=== PATIENT | female | born 1950 | race Hispanic/Latino ===

== ENCOUNTER → 2018-05-28 | Outpatient (CLI) | payer OTHER ==
[~2018-05-28] MED LIST: CALC-877 PO; CYCL30DR OP; FEXO1TAB8 PO; HAIR AND NAIL; HYDR200T82 PO; LOSA50TA25 PO; SIMV10TA6 PO
== END | disposition home or self-care (01) ==
LOC: RAH 11:15
PROVIDERS: ATTEND Internal Medicine
DX: M81.0 Age-related osteoporosis without current pathological fracture (principal); M15.0 Primary generalized (osteo)arthritis; M06.4 Inflammatory polyarthropathy
CPT/HCPCS: 73130; 73630

== ENCOUNTER → 2018-08-15 | Outpatient (CLI) | payer OTHER ==
[~2018-08-15] MED LIST changes: -LOSA50TA25 PO; +LOSA50TA64 PO
[2018-08-15 14:26] LABS: ALBUMIN 3.7 g/dL (3.5-5.0); BILIRUBIN,TOTAL 0.1 mg/dL (0.2-1.0); CREATININE 0.8 mg/dL (0.5-1.5); POTASSIUM 4.3 mmol/L (3.5-5.1); TOTAL PROTEIN, SERUM 7.9 g/dL (6.0-8.3)
== END | disposition home or self-care (01) ==
LOC: LAB 13:21
PROVIDERS: ATTEND Internal Medicine
DX: J84.9 Interstitial pulmonary disease, unspecified (principal)
CPT/HCPCS: 36415; 80053

== ENCOUNTER → 2018-08-18 | Outpatient (CLI) | payer OTHER ==
[~2018-08-18] MED LIST changes: +IOHEXOL-350 50ML VIAL IV ONE
== END | disposition home or self-care (01) ==
LOC: OIH 10:42
PROVIDERS: ATTEND Internal Medicine
DX: J84.9 Interstitial pulmonary disease, unspecified (principal); M47.815 Spondylosis without myelopathy or radiculopathy, thoracolumbar region; K44.9 Diaphragmatic hernia without obstruction or gangrene; K76.0 Fatty (change of) liver, not elsewhere classified; Z90.49 Acquired absence of other specified parts of digestive tract
CPT/HCPCS: 71260; Q9967

== ENCOUNTER 2020-01-11 06:15 | Day surgery (SDC) | payer OTHER ==
[2020-01-08 09:55] VITALS: BP 131/63; PULSE 91; RESP 17
--- NOTE | 2020-01-08 13:02 | NUR ---
Re: EKG Informed Dr. Olson regarding EKG; no new orders receied
[~2020-01-11] VITALS: Ht 157.5 cm; Wt 62.1 kg
[2020-01-11] VITALS (18 sets, daily range): BP systolic 115–160; BP diastolic 56–85; PULSE 56–88; RESP 13–20; TEMP 97–98
--- NOTE | 2020-01-11 07:30 | NUR ---
potential for infection: shaved with clipper to right knee / right leg per billie byrne, followed by wiping with herman: 2% chlorhexidine gluconate cloth patients pre-op skin prep.
[2020-01-11] MEDS ORDERED: CLINDAMYCIN 900 MG/D5% WATER 50 ML IV ONE (07:42)
[2020-01-11] MEDS ORDERED: SODIUM CHLORIDE 0.9% 1000ML 1,000 ML IV ONE (07:42)
[2020-01-11] MEDS ORDERED: CEFAZOLIN SODIUM 1 GM VIAL ONE ×2 (08:09→08:15)
[2020-01-11] MEDS ORDERED: GENTAMICIN SULFATE 80 MG/2 ML VIAL ONE ×2 (08:09→08:15)
[2020-01-11] MEDS ORDERED: DEXAMETHASONE SOD PHOSPHATE 10MG/ML 1ML VIAL ONE (10:21)
[2020-01-11] MEDS ORDERED: SUCCINYLCHOLINE 200MG/10ML SYR ONE (10:21)
[2020-01-11] MEDS ORDERED: LIDOCAINE PF 2% 5ML ABBOJECT ONE ×2 (10:21→10:23)
[2020-01-11] MEDS ORDERED: MIDAZOLAM HCL 1 MG/ML 2ML VIAL ONE (10:22)
[2020-01-11] MEDS ORDERED: PROPOFOL 10 MG/ML 20ML VIAL IV ONE (10:22)
[2020-01-11] MEDS ORDERED: GLYCOPYRROLATE 1 MG/5 ML SYRINGE ONE (10:22)
[2020-01-11] MEDS ORDERED: NEOSTIGMINE 5MG/5ML SYR IV ONE (10:22)
[2020-01-11] MEDS ORDERED: ROCURONIUM 10MG/1ML SYR 10 MG/ML ML ONE (10:22)
[2020-01-11] MEDS ORDERED: ONDANSETRON HCL 4 MG/2 ML VIAL ONE (10:22)
[2020-01-11] MEDS ORDERED: FENTANYL CITRATE PF 50 MCG/1 ML 2ML VIAL ONE (10:22)
[2020-01-11] MEDS ORDERED: MEPERIDINE-PF 25 MG/ML SYG ONE ×2 (12:39→12:48)
--- NOTE | 2020-01-11 12:45 | NUR ---
patient with bahman wrap to right knee, no bleeding or drainage noted. drain in place to right knee, draining small amount of bright red blood from drain into drainage bag.
--- NOTE | 2020-01-11 13:50 | NUR ---
discharge instructions provided to patient's spouse (berna smith) via telephone. instruction on incision care provided and handout given to patient to take home. follow up appointment provided and prescription called into pharmacy by dr meade. all questions/concerns answered and addressed.
--- NOTE | 2020-01-11 14:25 | NUR ---
patient discharged from facility via wheelchair. crutches were offered to patient to take home but patient states that she already hAS CRUTCHES AT HOME. patient assisted into private vehicle driven by spouse.
== END 2020-01-11 14:25 | disposition home or self-care (01) ==
LOC: DAH 06:15
PROVIDERS: ATTEND Orthopaedic Surgery
DX: M23.203 Derangement of unspecified medial meniscus due to old tear or injury, right knee (principal); I10 Essential (primary) hypertension; K21.9 Gastro-esophageal reflux disease without esophagitis; E11.9 Type 2 diabetes mellitus without complications; M19.90 Unspecified osteoarthritis, unspecified site; Z88.0 Allergy status to penicillin; Z88.5 Allergy status to narcotic agent; E03.9 Hypothyroidism, unspecified; Z90.710 Acquired absence of both cervix and uterus; Z98.890 Other specified postprocedural states; Z11.59 Encounter for screening for other viral diseases
CPT/HCPCS: 29881; 36415; 80048; 82948 ×2; 85025; 87070; 87076; 87205; 89051; 89060; 93005; A4213; A4215; A4221; A4222; A4223; A4649 ×3; A4663; A4930; A5120; A6223; J0330; J0690 ×2; J1100; J1580 ×2; J2001 ×2; J2175 ×2; J2250; J2405; J2704; J2710; J3010; J3490 ×2; J7030; J7120; U0003

== ENCOUNTER → 2020-04-07 | Outpatient (CLI) | payer OTHER ==
[~2020-04-07] MED LIST changes: -CALC-877 PO; +CYAN500T63 PO; +ERGO400C PO; -FEXO1TAB8 PO; -HYDR200T82 PO; +HYDR25TA PO; -IOHEXOL-350 50ML VIAL IV ONE; +IRON18TA PO; -LOSA50TA64 PO; +METF-444 PO; +MULT-1203 PO; +OLME20TA22 PO; +PANT40TA54 PO; +PRAV20TA4 PO; -SIMV10TA6 PO; +SUCR1TAB2 PO; +SULF1TAB42 PO; +TRAM50TA4 PO
== END | disposition home or self-care (01) ==
LOC: OIH 11:10
PROVIDERS: ATTEND Internal Medicine
DX: J84.9 Interstitial pulmonary disease, unspecified (principal); I70.0 Atherosclerosis of aorta; M47.814 Spondylosis without myelopathy or radiculopathy, thoracic region
CPT/HCPCS: 71046